=== PATIENT | female | born 1965 | race Caucasian/White ===

== ENCOUNTER 2016-08-14 | Emergency (ER) | payer OTHER ==
--- NOTE | 2016-08-14 00:42 | ED CLINICAL REPORT ---
Clinical Report - Physicians/Mid Levels [facility] [address] [place] [address] 08/14/2016 0:00 Patient: RADHA CARLTON Time Seen: 00:40 Aug 14 2016. Arrived- By private vehicle. Historian- patient. HISTORY OF PRESENT ILLNESS Chief Complaint: BACK PAIN. It is described as being moderate in degree and in the area of the upper lumbar spine. The quality is noted to be aching and "pain". (( Pt feels like there is something on her back, it does not feel right in her back. Pt cant find a comfortable position. Pt took a muscle relaxer that she was given a few years ago for the pain. Pt denies any urinary symptoms. Pt denies any recent injury to the mid back.). ( Localized pain only in the mid back and does not radiate.).). No bladder dysfunction, bowel dysfunction, sensory loss or motor loss. Patient denies an injury. No other injury. PAST HISTORY Fall. Contusion. Concussion. PROGRESS AND PROCEDURES Course of Care: 00:42 08/14/16. Pt eloped by the time I got to her room. CLINICAL IMPRESSION LWBS. (Electronically signed by Naman Awad MD 08/17/2016 11:57)
--- NOTE | 2016-08-14 00:42 | ED NURSING NOTES ---
Clinical Report - Nurses [facility] [address] [place] [address] 08/14/2016 0:00 Patient: RADHA CARLTON TRIAGE Triage time 00:05. Acuity: LEVEL 4. Chief Complaint: BACK PAIN. --00:10 James Silver R.N. 00:05 08/14/16. BP: 105/83. HR: 80. RR: 20. O2 saturation: 100%. Temp: 98.1 F. Pain level now 01/25. --00:10 James Silver R.N. Weight: 53 kg stated. Height/Length: 60 inches Per Patient. BMI: 22.8. --00:09 James Silver R.N. Medications None. --00:08 James Silver R.N. Medication/allergy information source: the patient. --00:10 James Silver R.N. Allergies No Known Drug Allergy. --00:08 James Silver R.N. History Arrived by private vehicle. Historian: patient. Accompanied by family. Primary physician (Dr Samson Arthur [facility] in [facility]). ( Pt feels like there is something on her back, it does not feel right in her back. Pt cant find a comfortable position. Pt took a muscle relaxer that she was given a few years ago for the pain. Pt denies any urinary symptoms. Pt denies any recent injury to the mid back.). ( Localized pain only in the mid back and does not radiate.). Treatment [employer]: (muscle relaxer). PAST MEDICAL HX: Immunizations: up-to-date. SOCIAL HX: Never smoker. Occasional alcohol use; consumes beer occasionally. No drug use. --00:10 James Silver R.N. PROBLEMS: Fall. Contusion. Concussion. LNMP - Last Normal Menstrual Period. --00:08 James Silver R.N. Interventions ID band on patient. To treatment room. --00:10 James Silver R.N. PHYSICAL ASSESSMENT GENERAL / NEURO / PSYCH: Alert. Oriented X 4. Appears in pain. RESPIRATORY: Respirations not labored. Chest nontender. Breath sounds within normal limits. CVS: Normal heart rate and rhythm. Capillary refill less than 2 seconds. GI / : Abdomen soft and nontender. Bowel sounds within normal limits. EXTREMITIES: Sensation intact in extremities. ROM of extremities within normal limits. BACK: ( pt feels like there is something in her back that makes the pain worse.). Limited ROM of the back in the thoracic spine (decreased flexion) and (decreased extension). --00:11 James Silver R.N. NURSING PROGRESS NOTES The plan of care for this patient has been created. Two patient identifiers checked. Call light placed in reach. Side rails up x 1. Bed placed in lowest position. --00:11 James Silver R.N. ( came to the nursing station and asked when the MD was going to see the pt. She was in a lot of pain. Pt and were seen walking out of the room and out to the lobby. I went to go talk to the patient, but they were already in the car. MD was walking down to the room right after they left. MD was notified that the pt left. Pt was ambulatory with her .). --00:44 James Silver R.N. DISPOSITION / DISCHARGE Departure time: 00:46. The patient left the Emergency Department without being seen by a physician. The patient appears to be alert, oriented x4 and coherent. She stated is leaving the ED due to the long waiting time (there was no long wait, they wanted to be seen as soon as they got into the room). Notified the ED physician of patient departure. Patient left without signing form prior to leaving. She left the Emergency Department ambulatory and via private vehicle. The patient eloped. --00:46 James Silver R.N. Locked/Released at 08/14/2016 0:46 by James Silver R.N.
--- NOTE | 2016-08-14 00:42 | ED CLINICAL REPORT ---
Clinical Report - Physicians/Mid Levels [facility] [address] [place] [address] 08/14/2016 0:00 Patient: RADHA CARLTON Time Seen: 00:40 Aug 14 2016. Arrived- By private vehicle. Historian- patient. HISTORY OF PRESENT ILLNESS Chief Complaint: BACK PAIN. It is described as being moderate in degree and in the area of the upper lumbar spine. The quality is noted to be aching and "pain". (( Pt feels like there is something on her back, it does not feel right in her back. Pt cant find a comfortable position. Pt took a muscle relaxer that she was given a few years ago for the pain. Pt denies any urinary symptoms. Pt denies any recent injury to the mid back.). ( Localized pain only in the mid back and does not radiate.).). No bladder dysfunction, bowel dysfunction, sensory loss or motor loss. Patient denies an injury. No other injury. PAST HISTORY Fall. Contusion. Concussion. PROGRESS AND PROCEDURES Course of Care: 00:42 08/14/16. Pt eloped by the time I got to her room. CLINICAL IMPRESSION LWBS. (Electronically signed by Naman Awad MD 08/17/2016 11:57)
--- NOTE | 2016-08-14 00:42 | ED NURSING NOTES ---
Clinical Report - Nurses [facility] [address] [place] [address] 08/14/2016 0:00 Patient: RADHA CARLTON TRIAGE Triage time 00:05. Acuity: LEVEL 4. Chief Complaint: BACK PAIN. --00:10 James Silver R.N. 00:05 08/14/16. BP: 105/83. HR: 80. RR: 20. O2 saturation: 100%. Temp: 98.1 F. Pain level now 01/25. --00:10 James Silver R.N. Weight: 53 kg stated. Height/Length: 60 inches Per Patient. BMI: 22.8. --00:09 James Silver R.N. Medications None. --00:08 James Silver R.N. Medication/allergy information source: the patient. --00:10 James Silver R.N. Allergies No Known Drug Allergy. --00:08 James Silver R.N. History Arrived by private vehicle. Historian: patient. Accompanied by family. Primary physician (Dr Samson Arthur [facility] in [facility]). ( Pt feels like there is something on her back, it does not feel right in her back. Pt cant find a comfortable position. Pt took a muscle relaxer that she was given a few years ago for the pain. Pt denies any urinary symptoms. Pt denies any recent injury to the mid back.). ( Localized pain only in the mid back and does not radiate.). Treatment [employer]: (muscle relaxer). PAST MEDICAL HX: Immunizations: up-to-date. SOCIAL HX: Never smoker. Occasional alcohol use; consumes beer occasionally. No drug use. --00:10 James Silver R.N. PROBLEMS: Fall. Contusion. Concussion. LNMP - Last Normal Menstrual Period. --00:08 James Silver R.N. Interventions ID band on patient. To treatment room. --00:10 James Silver R.N. PHYSICAL ASSESSMENT GENERAL / NEURO / PSYCH: Alert. Oriented X 4. Appears in pain. RESPIRATORY: Respirations not labored. Chest nontender. Breath sounds within normal limits. CVS: Normal heart rate and rhythm. Capillary refill less than 2 seconds. GI / : Abdomen soft and nontender. Bowel sounds within normal limits. EXTREMITIES: Sensation intact in extremities. ROM of extremities within normal limits. BACK: ( pt feels like there is something in her back that makes the pain worse.). Limited ROM of the back in the thoracic spine (decreased flexion) and (decreased extension). --00:11 James Silver R.N. NURSING PROGRESS NOTES The plan of care for this patient has been created. Two patient identifiers checked. Call light placed in reach. Side rails up x 1. Bed placed in lowest position. --00:11 James Silver R.N. ( came to the nursing station and asked when the MD was going to see the pt. She was in a lot of pain. Pt and were seen walking out of the room and out to the lobby. I went to go talk to the patient, but they were already in the car. MD was walking down to the room right after they left. MD was notified that the pt left. Pt was ambulatory with her .). --00:44 James Silver R.N. DISPOSITION / DISCHARGE Departure time: 00:46. The patient left the Emergency Department without being seen by a physician. The patient appears to be alert, oriented x4 and coherent. She stated is leaving the ED due to the long waiting time (there was no long wait, they wanted to be seen as soon as they got into the room). Notified the ED physician of patient departure. Patient left without signing form prior to leaving. She left the Emergency Department ambulatory and via private vehicle. The patient eloped. --00:46 James Silver R.N. Locked/Released at 08/14/2016 0:46 by James Silver R.N.
--- NOTE | 2016-08-17 11:57 | ED MED RECONCILIATION SUMMARY ---
Patient: RADHA CARLTON Medication Reconciliation Report [facility] VisitID: [id number] [address] [place] [address] 50y, F Registration Date/Time: 08/14/2016 Weight: 53.0 kg Height/Length: 60 in. BMI: 22.8 ALLERGIES: No Known Drug Allergy The patient's Home Medications are listed below: NONE. The source(s) of the original Home Medication information: patient The following Medications were given to the patient in the Emergency Department: None. The following Medications were prescribed to the patient: None.
--- NOTE | 2016-08-17 11:57 | ED DISCHARGE INSTRUCTIONS ---
Patient: RADHA CARLTON General Instructions [facility] VisitID: [id number] [address] [place] [address] 50y, F Registration Date/Time: 08/14/2016 LWBS. (Electronically signed by Naman Awad MD 08/17/2016 11:57)
--- NOTE | 2016-08-17 11:57 | ED MAR SUMMARY ---
..... Medication Administration Record [facility] [address] [place] [id number] Patient: RADHA CARLTON Visit ID: [id number] 50y, F Weight: 53.0 kg Height/Length: 60 in BMI: 22.8 ALLERGIES: No Known Drug Allergy
--- NOTE | 2016-08-17 11:57 | ED MED RECONCILIATION SUMMARY ---
Patient: RADHA CARLTON Medication Reconciliation Report [facility] VisitID: [id number] [address] [place] [address] 50y, F Registration Date/Time: 08/14/2016 Weight: 53.0 kg Height/Length: 60 in. BMI: 22.8 ALLERGIES: No Known Drug Allergy The patient's Home Medications are listed below: NONE. The source(s) of the original Home Medication information: patient The following Medications were given to the patient in the Emergency Department: None. The following Medications were prescribed to the patient: None.
--- NOTE | 2016-08-17 11:57 | ED MAR SUMMARY ---
..... Medication Administration Record [facility] [address] [place] [id number] Patient: RADHA CARLTON Visit ID: [id number] 50y, F Weight: 53.0 kg Height/Length: 60 in BMI: 22.8 ALLERGIES: No Known Drug Allergy
--- NOTE | 2016-08-17 11:57 | ED DISCHARGE INSTRUCTIONS ---
Patient: RADHA CARLTON General Instructions [facility] VisitID: [id number] [address] [place] [address] 50y, F Registration Date/Time: 08/14/2016 LWBS. (Electronically signed by Naman Awad MD 08/17/2016 11:57)
== END 2016-08-14 00:46 | disposition left against medical advice (07) ==
LOC: ED SRH
DX: Z53.21 Procedure and treatment not carried out due to patient leaving prior to being seen by health care provider (principal)